=== PATIENT | male | born 1960 | race African-American/Black ===

== ENCOUNTER 2018-12-08 05:00 | Emergency (ER) | payer OTHER ==
[2018-12-08 06:16] LABS: ADD UMIC NO; UR ASCORBIC ACID NEGATIVE (NEGATIVE); UR BILIRUBIN (Dip) NEGATIVE (NEGATIVE); UR BLOOD (Dip) NEGATIVE (NEGATIVE); UR CLARITY CLEAR (CLEAR); UR COLOR YELLOW (YELLOW); UR GLUCOSE (Dip) NEGATIVE (NEGATIVE); UR KETONES (Dip) NEGATIVE (NEGATIVE); UR LEUKOCYTE ESTERASE (Dip) NEGATIVE Leu/ul (NEGATIVE); UR NITRITE (Dip) NEGATIVE (NEGATIVE); UR TOTAL PROTEIN (Dip) NEGATIVE (NEGATIVE); UR UROBILINOGEN (Dip) NEGATIVE (NEGATIVE)
[2018-12-08 06:20] LABS: ADD MAN DIFF? NO
[2018-12-08] MEDS: morphine 4 MG/ML VIAL IV ×2 (06:25→07:35)
[2018-12-08] MEDS: ONDANSETRON 4 MG INJ IV (06:25)
[2018-12-08] MEDS: FAMOTIDINE 20 MG INJ IV (06:25)
[2018-12-08] MEDS: SOD CHLORIDE 0.9% 1,000 ML IV (06:26)
[2018-12-08 06:38] LABS: WHITE BLOOD COUNT 12.5 10^3/ul (4.8-10.8)
[2018-12-08 06:38] LABS: BASOPHIL # 0.1 10^3/ul (0.0-0.1); BASOPHILS % 1.1 % (0.0-2.0); EOSINOPHILS % 0.2 % (0.0-7.0); HEMATOCRIT 44.6 % (42.0-52.0); HEMOGLOBIN 14.6 g/dl (14.0-18.0); LYMPHOCYTES # 1.8 10^3/ul (0.8-2.9); LYMPHOCYTES % 14.1 % (15.0-51.0); MEAN CORPUSCULAR HEMOGLOBIN 30.9 pg (29.0-33.0); MEAN CORPUSCULAR HGB CONC 32.7 g/dl (32.0-37.0); MEAN CORPUSCULAR VOLUME 94.3 fl (82.0-101.0); MEAN PLATELET VOLUME 9.9 fl (7.4-10.4); MONOCYTE # 1.2 10^3/ul (0.3-0.9); MONOCYTES % 9.5 % (0.0-11.0); NEUTROPHIL # 9.3 10^3/ul (1.6-7.5); NEUTROPHILS % 74.7 % (39.0-77.0); PLATELET COUNT 249 10^3/UL (140-415); RED BLOOD COUNT 4.73 10^6/ul (4.70-6.10)
[2018-12-08 06:40] LABS: ALANINE AMINOTRANSFERASE 20 IU/L (13-69); ALBUMIN 4.3 g/dl (3.3-4.9); ALBUMIN/GLOBULIN RATIO 1.34; ALKALINE PHOSPHATASE 70 IU/L (42-121); ANION GAP 7 (5-13); ASPARTATE AMINO TRANSFERASE 29 IU/L (15-46); BILIRUBIN,INDIRECT 0.9 mg/dl (0-1.1); BILIRUBIN,TOTAL 0.9 mg/dl (0.2-1.3); BLOOD UREA NITROGEN 11 mg/dl (7-20); CALCIUM 10.1 mg/dl (8.4-10.2); CARBON DIOXIDE 25 mmol/L (21-31); CHLORIDE 111 mmol/L (97-110); CREATININE 0.94 mg/dl (0.61-1.24); Estimated GFR > 60 mL/min (>60); GLUCOSE 102 mg/dl (70-220); LIPASE 253 U/L (23-300); POTASSIUM 3.5 mmol/L (3.5-5.1); SODIUM 143 mmol/L (135-144); TOTAL PROTEIN 7.5 g/dl (6.1-8.1)
[2018-12-08 07:35] LABS: TROPONIN-I < 0.012 ng/ml (0.000-0.120)
== END 2018-12-08 09:11 | disposition home or self-care (01) ==
LOC: E/R 05:00
DX: R10.13 Epigastric pain (principal); I10 Essential (primary) hypertension; E11.9 Type 2 diabetes mellitus without complications
CPT/HCPCS: 36415; 80053; 81003; 83690; 84484; 85025; 96374; 96375; 96376; 99284-25

== ENCOUNTER 2018-12-15 00:33 | Inpatient (IN) | payer OTHER ==
[2018-12-15 04:41] LABS: ADD MAN DIFF? NO
[2018-12-15 04:43] LABS: WHITE BLOOD COUNT 25.2 10^3/ul (4.8-10.8)
[2018-12-15 04:43] LABS: ABNORMAL IP MESSAGE 1; BASOPHIL # 0.1 10^3/ul (0.0-0.1); BASOPHILS % 0.6 % (0.0-2.0); EOSINOPHILS # 0.1 10^3/ul (0.0-0.5); EOSINOPHILS % 0.4 % (0.0-7.0); HEMATOCRIT 36.4 % (42.0-52.0); HEMOGLOBIN 11.8 g/dl (14.0-18.0); LYMPHOCYTES % 8.1 % (15.0-51.0); MEAN CORPUSCULAR HEMOGLOBIN 31.1 pg (29.0-33.0); MEAN CORPUSCULAR HGB CONC 32.4 g/dl (32.0-37.0); MEAN CORPUSCULAR VOLUME 95.8 fl (82.0-101.0); MEAN PLATELET VOLUME 10.1 fl (7.4-10.4); MONOCYTE # 2.8 10^3/ul (0.3-0.9); MONOCYTES % 11.3 % (0.0-11.0); NEUTROPHIL # 19.8 10^3/ul (1.6-7.5); NEUTROPHILS % 78.6 % (39.0-77.0); PLATELET COUNT 257 10^3/UL (140-415); POSITIVE DIFF @See below; RED CELL DISTRIBUTION WIDTH 13.2 % (11.5-14.5)
[2018-12-15] MEDS: ONDANSETRON 4 MG INJ IV ×2 (04:45→09:40)
[2018-12-15] MEDS: morphine 10 MG INJ IV (04:45)
[2018-12-15 05:01] LABS: ALANINE AMINOTRANSFERASE 29 IU/L (13-69); ALBUMIN 3.6 g/dl (3.3-4.9); ALKALINE PHOSPHATASE 67 IU/L (42-121); ANION GAP 7 (5-13); ASPARTATE AMINO TRANSFERASE 15 IU/L (15-46); BILIRUBIN,INDIRECT 0.5 mg/dl (0-1.1); BILIRUBIN,TOTAL 0.5 mg/dl (0.2-1.3); BLOOD UREA NITROGEN 8 mg/dl (7-20); CALCIUM 9.1 mg/dl (8.4-10.2); CARBON DIOXIDE 31 mmol/L (21-31); CHLORIDE 106 mmol/L (97-110); CREATININE 0.75 mg/dl (0.61-1.24); Estimated GFR > 60 mL/min (>60); GLUCOSE 108 mg/dl (70-220); POTASSIUM 3.8 mmol/L (3.5-5.1); SODIUM 144 mmol/L (135-144); TOTAL PROTEIN 6.6 g/dl (6.1-8.1)
[2018-12-15] MEDS: SOD CHLORIDE 0.9% 100 ML (05:28)
[2018-12-15] MEDS: IOHEXOL 300MG/ML 150 ML BTL (05:28)
[2018-12-15] MEDS: PIPER-TAZO 3.375 GM IV (PMX) 100 ML IVPB (05:51)
[2018-12-15 06:06] LABS: LACTIC ACID 0.9 mmol/L (0.5-2.0)
[2018-12-15 06:16] LABS: ADD UMIC NO; UR ASCORBIC ACID NEGATIVE (NEGATIVE); UR BILIRUBIN (Dip) NEGATIVE (NEGATIVE); UR BLOOD (Dip) NEGATIVE (NEGATIVE); UR CLARITY CLEAR (CLEAR); UR COLOR STRAW (YELLOW); UR GLUCOSE (Dip) NEGATIVE (NEGATIVE); UR KETONES (Dip) NEGATIVE (NEGATIVE); UR LEUKOCYTE ESTERASE (Dip) NEGATIVE Leu/ul (NEGATIVE); UR NITRITE (Dip) NEGATIVE (NEGATIVE); UR TOTAL PROTEIN (Dip) NEGATIVE (NEGATIVE); UR UROBILINOGEN (Dip) NEGATIVE (NEGATIVE)
[2018-12-15] MEDS ORDERED: HYDROmorphONE 2 MG/ML SYG IM (06:29)
[2018-12-15] MEDS: HYDROmorphONE 2 MG/ML SYG IV (06:44)
[2018-12-15] MEDS: DEXAMETHASONE 10 MG/ML 1 ML INJ IV (06:51)
[2018-12-15] MEDS ORDERED: ONDANSETRON 4 MG INJ IV ×2 (09:30→13:30)
[2018-12-15] MEDS ORDERED: ACETAMINOPHEN 325 MG TAB PO ×2 (09:30→13:30)
[2018-12-15] MEDS: HYDROmorphONE 1 MG/ML SYG IV ×2 (09:40→20:07)
[2018-12-15] MEDS: morphine 2 MG INJ IV ×2 (13:18→18:26)
[2018-12-15] MEDS ORDERED: NACL 0.9% 3 ML SYG IV (13:30)
[2018-12-15] MEDS ORDERED: DOCUSATE SODIUM 100 MG CAP PO (13:30)
[2018-12-15] MEDS ORDERED: ZOLPIDEM 5 MG TAB PO (13:30)
[2018-12-15] MEDS: SOD CHLORIDE 0.9% 1,000 ML IV ×2 (14:07→23:13)
[2018-12-15] MEDS: HYDROCODONE/APAP (5/325) TAB PO (15:19)
[2018-12-15] MEDS: AMPICILLIN/SULB 3 GM/NS (PMX) 100 ML IVPB (17:52)
[2018-12-15] MEDS: ATENOLOL 25 MG TAB PO (20:17)
[2018-12-16] MEDS: AMPICILLIN/SULB 3 GM/NS (PMX) 100 ML IVPB ×4 (00:10→17:09)
[2018-12-16] MEDS: morphine 2 MG INJ IV ×3 (01:19→12:28)
[2018-12-16 05:38] LABS: ABNORMAL IP MESSAGE 1; HEMATOCRIT 35.4 % (42.0-52.0); HEMOGLOBIN 11.7 g/dl (14.0-18.0); MEAN CORPUSCULAR HGB CONC 33.1 g/dl (32.0-37.0); MEAN CORPUSCULAR VOLUME 93.7 fl (82.0-101.0); MEAN PLATELET VOLUME 10.3 fl (7.4-10.4); PLATELET COUNT 292 10^3/UL (140-415); POSITIVE DIFF @See below; RED BLOOD COUNT 3.78 10^6/ul (4.70-6.10); RED CELL DISTRIBUTION WIDTH 12.8 % (11.5-14.5)
[2018-12-16 05:38] LABS: WHITE BLOOD COUNT 34.6 10^3/ul (4.8-10.8)
[2018-12-16 05:56] LABS: ADD MAN DIFF? YES
[2018-12-16] MEDS: SOD CHLORIDE 0.9% 1,000 ML IV (06:03)
[2018-12-16 06:09] LABS: FREE THYROXINE INDEX (Calc) 2.06 ug/ml (0.65-3.89); T3 UPTAKE 39.6 % (23.5-40.5); T4 (THYROXINE) 5.2 ug/dl (5.5-11.0)
[2018-12-16 06:10] LABS: ANION GAP 6 (5-13); BLOOD UREA NITROGEN 10 mg/dl (7-20); CALCIUM 9.2 mg/dl (8.4-10.2); CARBON DIOXIDE 30 mmol/L (21-31); CHLORIDE 106 mmol/L (97-110); CREATININE 0.63 mg/dl (0.61-1.24); Estimated GFR > 60 mL/min (>60); GLUCOSE 132 mg/dl (70-220); MAGNESIUM 2.1 mg/dl (1.7-2.5); PHOSPHORUS 2.9 mg/dl (2.5-4.9); POTASSIUM 3.9 mmol/L (3.5-5.1); SODIUM 142 mmol/L (135-144)
[2018-12-16 06:18] LABS: HEMOGLOBIN A1C 5.6 % (0-5.9)
[2018-12-16 07:52] LABS: BAND NEUTROPHILS #M 4.1 10^3/ul (0.0-0.6); BAND NEUTROPHILS % (M) 12 % (0-4); LYMPHOCYTES #M 0.3 10^3/ul (0.8-2.9); LYMPHOCYTES % (M) 1 % (15-51); MONOCYTE #M 2.7 10^3/ul (0.3-0.9); MONOCYTES % (M) 8 % (0-11); PLATELET ESTIMATE NORMAL; REACTIVE LYMPHOCYTES #M 0.3 10^3/ul (0.0-0.0); REACTIVE LYMPHOCYTES% (M) 1 % (0-0); SEG NEUT #M 28.4 10^3/ul (1.6-7.5); SEGMENTED NEUTROPHILS (M) % 78 % (39-77)
[2018-12-16] MEDS: ATENOLOL 50 MG TAB PO (08:22)
[2018-12-16] MEDS: HYDROmorphONE 1 MG/ML SYG IV (15:04)
== END 2018-12-16 17:36 | disposition home or self-care (01) | DRG 872 ==
LOC: E/R 00:33 → 2NE 09:28
DX: A41.9 Sepsis, unspecified organism (principal); L03.211 Cellulitis of face; D72.829 Elevated white blood cell count, unspecified; I10 Essential (primary) hypertension; D35.00 Benign neoplasm of unspecified adrenal gland
CPT/HCPCS: 70486; 70491; 71046; 80048; 80053; 81003; 83036; 83605; 83735; 84100; 84436; 84479; 85025; 87040-91; 87086; 96374; 96375; 99285-25